=== PATIENT | female | born 1945 | race American Indian/Alaskan Native ===

== ENCOUNTER 2020-01-22 07:31 | Outpatient (CLI) | payer MEDICARE ==
--- NOTE | 2020-01-22 08:56 | Fluoroscopy Report ---
BARIUM SWALLOW Indication: ESOPHAGEAL DYSPHAGIA. Technique: Single contrast barium technique utilized to evaluate the esophagus. FINDINGS: Limited examination due to the patient's inability to effectively swallow the barium contra st agent. Most of the contrast agent pooled in the in the vallecula and piriform sinuses with very li ttle contrast entering the esophagus. No penetration or aspiration was witnessed during this exam but I feel this patient is at risk for aspiration. A prominent cricopharyngeal muscle is suspected which could indicate cricopharyngeal achalasia. There is incomplete opacification of the cervical and thoracic esophagus but no obvious esophageal le lui is detected on this limited exam. No hiatal hernia. IMPRESSION: Limited examination. The patient could swallow very little oral contrast. Most of the co ntrast pools in the pharynx but no blas aspiration was witnessed. I suspect this patient is at risk for aspiration although. Upper esophageal sphincter dysfunction or cricopharyngeal achalasia could be considered. There is no obvious esophageal abnormality. Fluoroscopic time: 1.6 minutes Number of fluoroscopic images: 50 Signer Name: Garrett Voss Jr, MD Signed: 01/22/2020 8:51 AM Workstation Name: [id number]
== END 2020-01-22 07:32 | disposition home or self-care (01) ==
LOC: FLUORO 07:31
PROVIDERS: ATTEND Internal Medicine Gastroenterology
DX: R13.10 Dysphagia, unspecified (principal); K30 Functional dyspepsia
CPT/HCPCS: 74220